=== PATIENT | female | born 1945 | race Caucasian/White ===

== ENCOUNTER 2018-04-30 11:19 | Day surgery (SDC) | payer MEDICARE, OTHER ==
[2018-04-30] MEDS ORDERED: LACTATED RINGERS 1,000 ML IV ONE (11:47)
[2018-04-30] MEDS ORDERED: MIDAZOLAM 2 MG/2 ML VIAL IVP ONE (12:49)
[2018-04-30] MEDS ORDERED: fentaNYL 100 MCG/2 ML VIAL IVP ONE (12:49)
[2018-04-30 14:39] VITALS: BP 133/62
== END 2018-04-30 11:20 | disposition home or self-care (01) ==
LOC: SDS 11:19
PROVIDERS: ATTEND Surgery
PROC: 0DJD8ZZ Inspection of Lower Intestinal Tract, Via Natural or Artificial Opening Endoscopic (ICD-10-PCS; principal; 2018-04-30 12:30)
DX: Z12.11 Encounter for screening for malignant neoplasm of colon (principal); K57.30 Diverticulosis of large intestine without perforation or abscess without bleeding; K64.8 Other hemorrhoids; Z88.5 Allergy status to narcotic agent; Z87.891 Personal history of nicotine dependence
CPT/HCPCS: G0121; J7120

== ENCOUNTER 2019-08-09 08:11 | Outpatient (CLI) | payer MEDICARE, OTHER ==
--- NOTE | 2019-08-13 11:06 | Mammography Report ---
Reason: ROUTINE MAMMO Procedure Date: 08/09/2019 Accession Number: [id number] / [id number] Procedure: BRYAN - Screening Mammo w/Tor CPT Code: Final Report FULL RESULT: EXAM: Screening Mammo w/Tor DATE: 08/09/2019 8:46 AM CLINICAL HISTORY: Screening encounter. TECHNIQUE: (B) - Bilateral CC and MLO views were obtained. Left laterally exaggerated CC view is obtained. COMPARISON: 06/10/2016 through 09/03/2009. PARENCHYMAL PATTERN: (A) - The breast(s) demonstrate(s) scattered fibroglandular densities. FINDINGS: There are typically benign vascular calcifications. There are no suspicious masses, calcifications, or areas of distortion. IMPRESSION: Benign findings. BI-RADS category 2. RECOMMENDATION: (ANNUAL) - Recommend routine annual screening mammography. BI-RADS CATEGORY: (2) - Benign Findings. STANDARD QUALIFYING STATEMENTS: 1. This examination was not reviewed with the aid of Computer-Aided Detection (CAD). 2. A negative or benign imaging report should not preclude biopsy if clinically suspicious findings are present. 3. Dense breasts may obscure an underlying neoplasm. 4. This examination was reviewed with the aid of 3D breast imaging (tomosynthesis).
== END 2019-08-09 08:12 | disposition home or self-care (01) ==
LOC: DI 08:11
PROVIDERS: ATTEND Internal Medicine
DX: Z12.31 Encounter for screening mammogram for malignant neoplasm of breast (principal)
CPT/HCPCS: 77063; 77067

== ENCOUNTER 2020-07-23 08:00 | Outpatient (CLI) | payer MEDICARE, OTHER ==
[2020-07-23 08:16] LABS: BASOPHILS % (AUTO) 0.2 %; EOSINOPHILS # (AUTO) 0.3 10^3/uL (0.0-0.7); EOSINOPHILS % (AUTO) 5.6 %; HGB - HEMOGLOBIN 14.7 g/dL (12.0-16.0); LYMPHOCYTES # (AUTO) 1.7 10^3/uL (1.5-3.5); LYMPHOCYTES % (AUTO) 32.9 %; MEAN CORPUSCULAR HEMOGLOBIN 30.2 pg (27.0-31.0); MEAN CORPUSCULAR HGB CONC 32.1 g/dL (32.0-36.0); MEAN PLATELET VOLUME 10.6 fL (7.9-10.8); MONOCYTES # (AUTO) 0.4 10^3/uL (0.0-1.0); NEUTROPHILS # (AUTO) 2.7 10^3/uL (1.5-6.6); NEUTROPHILS % (AUTO) 54.1 %; PLT - PLATELET COUNT 176 10^3/uL (130-450); RED BLOOD COUNT 4.87 10^6/uL (4.20-5.40); RED CELL DISTRIBUTION WIDTH 13.7 % (12.0-15.0)
[2020-07-23 08:38] LABS: ALBUMIN 4.4 g/dL (3.2-5.5); ALBUMIN/GLOBULIN RATIO 1.8 (1.0-2.2); ALKALINE PHOSPHATASE 45 IU/L (42-121); ALT ALANINE AMINOTRANSFERASE 12 IU/L (10-60); AST ASPARTATE AMINOTRANSFERASE 19 IU/L (10-42); BILIRUBIN,TOTAL 0.6 mg/dL (0.2-1.0); BUN - BLOOD UREA NITROGEN 17 mg/dL (6-20); CALCIUM 9.5 mg/dL (8.5-10.3); CARBON DIOXIDE - CO2 26 mmol/L (21-32); CHLORIDE 105 mmol/L (101-111); CHOL/HDL RATIO 1.8 (<4.4); CHOLESTEROL 175 mg/dL; CREATININE 0.8 mg/dL (0.4-1.0); GLUCOSE 102 mg/dL (70-100); HDL CHOLESTEROL 97 mg/dL; LDL CHOLESTEROL,CALCULATED 65 mg/dL; LDL/HDL RATIO 0.7 (<4.4); TOTAL PROTEIN 6.8 g/dL (6.7-8.2); VLDL CHOLESTEROL 13 mg/dL
[2020-07-23 12:49] LABS: HEMOGLOBIN A1c% 5.1 % (4.27-6.07)
== END 2020-07-23 23:59 | disposition home or self-care (01) ==
LOC: LAB 08:00
PROVIDERS: ATTEND Internal Medicine
DX: R73.01 Impaired fasting glucose (principal); Z13.6 Encounter for screening for cardiovascular disorders; Z79.899 Other long term (current) drug therapy; N95.1 Menopausal and female climacteric states; G47.00 Insomnia, unspecified; N93.1 Pre-pubertal vaginal bleeding
CPT/HCPCS: 36415; 80053; 80061; 83036; 83721; 84443; 85025

== ENCOUNTER 2020-11-04 12:09 | Outpatient (CLI) | payer MEDICARE, OTHER ==
[2020-11-04] MEDS ORDERED: IOPAMIDOL-300 100 ML VIAL ONE (12:38)
[2020-11-04] MEDS ORDERED: IOPAMIDOL-300 50 ML VIAL ONE (12:38)
--- NOTE | 2020-11-04 15:19 | CT Report ---
PROCEDURE: Abdomen/Pelvis W INDICATIONS: LLQ PAIN CONTRAST: IV CONTRAST: Isovue 300 ml: 100 PO CONTRAST: Isovue 300 ml50 TECHNIQUE: After the administration of intravenous contrast, 5 mm thick sections acquired from the diaphragms to the symphysis. 5 mm thick coronal and sagittal reformats were acquired. For radiation dose reducti on, the following was used: automated exposure control, adjustment of mA and/or kV according to shirley ent size. COMPARISON: None. FINDINGS: Lower thorax: There is 4 mm peripheral nodule left lower lobe. Remainder of the lung bases are clear . Heart size normal. No hiatal hernia. Liver: Normal in size and attenuation. No contour deformity present. Biliary system: No calcified cholelithiasis or pericholecystic inflammation. No evidence of bile du ct dilatation. Pancreas: Unremarkable without mass or inflammation evident. Spleen: Normal in size and density. Adrenals: Normal morphology and density. Reproductive system: Unremarkable as visualized. Urinary system: Normal renal size and attenuation. No renal calculi, hydronephrosis, or solid mass p resent. Urinary bladder unremarkable. Gastrointestinal system: The bowel appears unremarkable with no evidence of bowel obstruction or inf lammation. The stomach appears unremarkable. Moderate diffuse debris throughout the colon. Appendix: No findings to suggest acute appendicitis. Peritoneal spaces: No mesenteric or retroperitoneal adenopathy. No free air. No free fluid. Vasculature: The IVC, aorta and iliac vasculature are unremarkable. Musculoskeletal: Normal bone mineralization. No acute fractures. Abdominal wall intact without sandra dence of ventral or inguinal hernias. Degenerative disc disease and arthropathy lower lumbar spine re sulting in severe central stenosis and grade 1 anterior spinal listhesis at L4-5. Minimal retrolisthe sis also noted at L2-3. IMPRESSION:? 1. Moderate to fecal debris throughout the colon without evidence of diverticulitis or obstruction. N o free air. 2. Incidental 4 mm peripheral left lower lobe nodule. Consider one-year follow-up in a high risk shirley ent. 3. Lower lumbar spine degenerative disc disease and arthropathy results in severe central stenosis an d grade 1 anterior spondylolisthesis at L4-5 Reviewed by: Raymond Diaz MD on 11/04/2020 2:18 PM AKDT Approved by: Raymond Diaz MD on 11/04/2020 2:18 PM AKDT Station ID: [id number]
[2020-11-04] MEDS ORDERED: IOPAMIDOL-300 100 ML VIAL IVP ONE (18:55)
[2020-11-04] MEDS ORDERED: IOPAMIDOL-300 50 ML VIAL PO ONE (18:55)
== END 2020-11-04 12:10 | disposition home or self-care (01) ==
LOC: DI 12:09
PROVIDERS: ATTEND Internal Medicine
DX: R10.32 Left lower quadrant pain (principal); R91.1 Solitary pulmonary nodule; M51.36 Other intervertebral disc degeneration, lumbar region; M48.061 Spinal stenosis, lumbar region without neurogenic claudication; M43.16 Spondylolisthesis, lumbar region; Z79.899 Other long term (current) drug therapy
CPT/HCPCS: 36415; 74177; 82565; Q9967

== ENCOUNTER 2020-11-04 12:11 | Outpatient (CLI) | payer MEDICARE, OTHER ==
[2020-11-04 12:59] LABS: CREATININE 0.7 mg/dL (0.4-1.0)
== END 2020-11-04 12:12 | disposition home or self-care (01) ==
LOC: LAB 12:11
PROVIDERS: ATTEND Internal Medicine
DX: Z79.899 Other long term (current) drug therapy (principal)
CPT/HCPCS: 36415; 82565

== ENCOUNTER 2021-08-10 09:22 | Outpatient (CLI) | payer MEDICARE, OTHER ==
--- NOTE | 2021-08-11 08:02 | Mammography Report ---
BILATERAL DIGITAL SCREENING MAMMOGRAM 3D/2D: 08/10/2021 CLINICAL: Routine screening. Comparison is made to exams dated: 08/09/2019 mammogram, 06/10/2016 mammogram, 12/04/2015 mammogram, mammogram, and 08/30/2012 mammogram - [facility]. There are scattered fibro glandular elements in both breasts. No significant masses, calcifications, or other findings are seen in either breast. There has been no significant interval change. IMPRESSION: NEGATIVE There is no mammographic evidence of malignancy. A 1 year screening mammogram is recommended. This exam was interpreted at Station ID: [id number]. NOTE: For mammograms, a report in lay terms will be sent to the patient. Approximately 15% of breast malignancies will not be visualized mammographically. In the management of a palpable breast mass, a negative mammogram must not discourage biopsy of a clinically suspicious lesion. Electronically Signed By: Radha Norwood M.D. [email or web address]:08/10/2021 11:15:26 ACR BI-RADS Category 1: Negative 3341F PARENCHYMAL PATTERN: (A) - The breast(s) demonstrate(s) scattered fibroglandular densities. BI-RADS CATEGORY: (1) - 1 RECOMMENDATION: (ANNUAL) - Recommend routine annual screening mammography. [id number] 1 year screening LATERALITY: (B)
== END 2021-08-10 09:23 | disposition home or self-care (01) ==
LOC: DI.N 09:22
PROVIDERS: ATTEND Internal Medicine
DX: Z12.31 Encounter for screening mammogram for malignant neoplasm of breast (principal)

== ENCOUNTER 2022-03-01 08:29 | Outpatient (CLI) | payer MEDICARE, OTHER ==
--- NOTE | 2022-03-01 10:08 | Ultrasound Report ---
PROCEDURE: Duplex Ext Veins Left INDICATIONS: PAIN, EDEMA TECHNIQUE: Real-time imaging, as well as color and pulse Doppler interrogation, were performed of the lower extr emity deep veins from the inguinal ligament to the popliteal fossa. COMPARISON: None. FINDINGS: The deep veins are normally compressible, and free of intraluminal thrombus. Color and pu lse Doppler demonstrate normal phasic intraluminal flow. There is normal augmentation response to di stal compression maneuver. No sonographic abnormality identified at the patient indicated area of co ncern at the lateral aspect of the knee. IMPRESSION: No evidence of left lower extremity deep venous thrombosis. Reviewed by: Harvey Rodriguez MD on 03/01/2022 10:06 AM PDT Approved by: Harvey Rodriguez MD on 03/01/2022 10:06 AM PDT Station ID: [id number]
== END 2022-03-01 08:30 | disposition home or self-care (01) ==
LOC: DI 08:29
PROVIDERS: ATTEND Internal Medicine
DX: M79.605 Pain in left leg (principal); R60.9 Edema, unspecified

== ENCOUNTER 2022-08-10 08:12 | Outpatient (CLI) | payer MEDICARE, OTHER ==
--- NOTE | 2022-08-10 11:37 | Mammography Report ---
BILATERAL DIGITAL SCREENING MAMMOGRAM 3D/2D: 08/10/2022 CLINICAL: Routine screening. Comparison is made to exams dated: 08/10/2021 mammogram, 08/09/2019 mammogram, 06/10/2016 mammogram, mammogram, 09/06/2013 mammogram, and 08/30/2012 mammogram - [facility]. There are scattered areas of fibroglandular density in both breasts (category b / 25%-50% glandular t issue). No significant masses, calcifications, or other findings are seen in either breast. There has been no significant interval change. IMPRESSION: NEGATIVE There is no mammographic evidence of malignancy. A 1 year screening mammogram is recommended. Based on the Tyrer Cuzick model (a risk assessment model) the patients lifetime risk is 2.4% and her 10 year risk is 0.0%. According to the ACR, ACS, and NCCN guidelines, an annual breast MRI exam anna g with mammogram is recommended if the patients lifetime risk is 20% or greater. This exam was interpreted at Station ID: [id number]. NOTE: For mammograms, a report in lay terms will be sent to the patient. Approximately 15% of breast malignancies will not be visualized mammographically. In the management of a palpable breast mass, a negative mammogram must not discourage biopsy of a clinically suspicious lesion. Electronically Signed By: Rashel Ruiz M.D. [email or web address]:08/10/2022 08:51:16 ACR BI-RADS Category 1: Negative 3341F PARENCHYMAL PATTERN: (A) - The breast(s) demonstrate(s) scattered fibroglandular densities. BI-RADS CATEGORY: (1) - 1 RECOMMENDATION: (ANNUAL) - Recommend routine annual screening mammography. [id number] 1 year screening LATERALITY: (B)
== END 2022-08-10 08:13 | disposition home or self-care (01) ==
LOC: DI.N 08:12
PROVIDERS: ATTEND Internal Medicine
DX: Z12.31 Encounter for screening mammogram for malignant neoplasm of breast (principal)

== ENCOUNTER 2022-08-25 07:25 | Outpatient (CLI) | payer MEDICARE, OTHER ==
[2022-08-25 07:59] LABS: BASOPHILS % (AUTO) 0.5 %; EOSINOPHILS # (AUTO) 0.3 10^3/uL (0.0-0.7); EOSINOPHILS % (AUTO) 5.8 %; HCT - HEMATOCRIT 45.2 % (37.0-47.0); HGB - HEMOGLOBIN 14.9 g/dL (12.0-16.0); LYMPHOCYTES # (AUTO) 1.9 10^3/uL (1.5-3.5); LYMPHOCYTES % (AUTO) 34.2 %; MEAN CORPUSCULAR VOLUME 90.9 fL (81.0-99.0); MEAN PLATELET VOLUME 10.2 fL (7.9-10.8); MONOCYTES # (AUTO) 0.4 10^3/uL (0.0-1.0); MONOCYTES % (AUTO) 7.7 %; NEUTROPHILS # (AUTO) 2.9 10^3/uL (1.5-6.6); NEUTROPHILS % (AUTO) 51.4 %; PLT - PLATELET COUNT 193 10^3/uL (130-450); RED BLOOD COUNT 4.97 10^6/uL (4.20-5.40); RED CELL DISTRIBUTION WIDTH 13.9 % (12.0-15.0); WHITE BLOOD COUNT 5.6 x10^3/uL (4.8-10.8)
[2022-08-25 08:18] LABS: ALBUMIN 4.3 g/dL (3.2-5.5); ALBUMIN/GLOBULIN RATIO 1.5 (1.0-2.2); ALKALINE PHOSPHATASE 41 IU/L (42-121); ALT ALANINE AMINOTRANSFERASE 11 IU/L (10-60); AST ASPARTATE AMINOTRANSFERASE 19 IU/L (10-42); BILIRUBIN,TOTAL 0.8 mg/dL (0.2-1.0); BUN - BLOOD UREA NITROGEN 17 mg/dL (6-20); CALCIUM 9.5 mg/dL (8.5-10.3); CARBON DIOXIDE - CO2 28 mmol/L (21-32); CHLORIDE 103 mmol/L (101-111); CHOL/HDL RATIO 2.1 (<4.4); CHOLESTEROL 183 mg/dL; CREATININE 0.6 mg/dL (0.4-1.0); GFR - MDRD 97 (>89); GLUCOSE 102 mg/dL (70-100); HDL CHOLESTEROL 88 mg/dL; LDL CHOLESTEROL,CALCULATED 84 mg/dL; POTASSIUM 4.2 mmol/L (3.5-5.0); SODIUM 138 mmol/L (135-145); TOTAL PROTEIN 7.2 g/dL (6.7-8.2); TRIGLYCERIDES 55 mg/dL; VLDL CHOLESTEROL 11 mg/dL
[2022-08-29 10:22] LABS: ESTIMATED AVERAGE GLUCOSE 105 mg/dL (70-100); HEMOGLOBIN A1c% 5.3 % (4.27-6.07)
== END 2022-08-25 07:26 | disposition home or self-care (01) ==
LOC: LAB 07:25
PROVIDERS: ATTEND Internal Medicine
DX: Z00.00 Encounter for general adult medical examination without abnormal findings (principal); H26.9 Unspecified cataract; N95.1 Menopausal and female climacteric states; R73.01 Impaired fasting glucose; G47.00 Insomnia, unspecified; M19.90 Unspecified osteoarthritis, unspecified site; R21 Rash and other nonspecific skin eruption; Z13.6 Encounter for screening for cardiovascular disorders; R91.1 Solitary pulmonary nodule; M48.061 Spinal stenosis, lumbar region without neurogenic claudication; Z79.899 Other long term (current) drug therapy
CPT/HCPCS: 36415; 80053; 80061; 83036; 83721; 84443; 85025

== ENCOUNTER 2023-08-17 08:22 | Outpatient (CLI) | payer MEDICARE, OTHER ==
--- NOTE | 2023-08-18 08:38 | Mammography Report ---
BILATERAL DIGITAL SCREENING MAMMOGRAM 3D/2D: 08/17/2023 CLINICAL: Routine screening. Comparison is made to exams dated: 08/10/2022 mammogram, 08/10/2021 mammogram, 08/09/2019 mammogram, mammogram, 12/04/2015 mammogram, and 09/06/2013 mammogram - Merged with [facility]. There are scattered areas of fibroglandular density in both breasts (category b / 25%-50% glandular t issue). No significant masses, calcifications, or other findings are seen in either breast. There has been no significant interval change. IMPRESSION: NEGATIVE There is no mammographic evidence of malignancy. A 1 year screening mammogram is recommended. Based on the Tyrer Cuzick model (a risk assessment model) the patient's lifetime risk is 2.2% and her 10 year risk is 0.0%. According to the ACR, ACS, and NCCN guidelines, an annual breast MRI exam anna g with mammogram is recommended if the patient's lifetime risk is 20% or greater. This exam was interpreted at Station ID: [id number]. NOTE: For mammograms, a report in lay terms will be sent to the patient. Approximately 15% of breast malignancies will not be visualized mammographically. In the management of a palpable breast mass, a negative mammogram must not discourage biopsy of a clinically suspicious lesion. Electronically Signed By: Arsen [email or web address]:08/17/2023 09:32:50 letter sent: No_Letter ACR BI-RADS Category 1: Negative 3341F PARENCHYMAL PATTERN: (A) - The breast(s) demonstrate(s) scattered fibroglandular densities. BI-RADS CATEGORY: (1) - 1 Mammogram [id number] 1 year screening LATERALITY: (B)
== END 2023-08-17 08:23 | disposition home or self-care (01) ==
LOC: DI.N 08:22
PROVIDERS: ATTEND Internal Medicine
DX: Z12.31 Encounter for screening mammogram for malignant neoplasm of breast (principal); R92.323 Mammographic fibroglandular density, bilateral breasts

== ENCOUNTER 2023-09-05 07:27 | Outpatient (CLI) | payer MEDICARE, OTHER ==
[2023-09-05 07:45] LABS: BASOPHILS % (AUTO) 0.6 %; EOSINOPHILS # (AUTO) 0.3 10^3/uL (0.0-0.7); EOSINOPHILS % (AUTO) 4.2 %; HCT - HEMATOCRIT 45.8 % (37.0-47.0); HGB - HEMOGLOBIN 14.7 g/dL (12.0-16.0); LYMPHOCYTES # (AUTO) 2.1 10^3/uL (1.5-3.5); LYMPHOCYTES % (AUTO) 32.2 %; MEAN CORPUSCULAR HGB CONC 32.1 g/dL (32.0-36.0); MEAN CORPUSCULAR VOLUME 93.5 fL (81.0-99.0); MEAN PLATELET VOLUME 10.6 fL (7.9-10.8); MONOCYTES # (AUTO) 0.5 10^3/uL (0.0-1.0); MONOCYTES % (AUTO) 7.6 %; NEUTROPHILS # (AUTO) 3.6 10^3/uL (1.5-6.6); NEUTROPHILS % (AUTO) 55.2 %; PLT - PLATELET COUNT 201 10^3/uL (130-450); RED CELL DISTRIBUTION WIDTH 13.6 % (12.0-15.0); WHITE BLOOD COUNT 6.6 x10^3/uL (4.8-10.8)
[2023-09-05 08:05] LABS: ALBUMIN 4.2 g/dL (3.2-5.5); ALBUMIN/GLOBULIN RATIO 1.8 (1.0-2.2); ALKALINE PHOSPHATASE 53 IU/L (42-121); ALT ALANINE AMINOTRANSFERASE 6 IU/L (10-60); AST ASPARTATE AMINOTRANSFERASE 14 IU/L (10-42); BILIRUBIN,TOTAL 0.6 mg/dL (0.2-1.0); BUN - BLOOD UREA NITROGEN 15 mg/dL (6-20); CALCIUM 9.8 mg/dL (8.5-10.3); CARBON DIOXIDE - CO2 28 mmol/L (21-32); CHLORIDE 106 mmol/L (101-111); CHOLESTEROL 149 mg/dL; CREATININE 0.7 mg/dL (0.6-1.3); GFR - MDRD 81 (>89); GLUCOSE 105 mg/dL (74-104); HDL CHOLESTEROL 76 mg/dL; LDL CHOLESTEROL,CALCULATED 54 mg/dL; LDL/HDL RATIO 0.7 (<4.4); POTASSIUM 4.2 mmol/L (3.5-4.5); SODIUM 138 mmol/L (135-145); TOTAL PROTEIN 6.5 g/dL (6.4-8.9); TRIGLYCERIDES 97 mg/dL (48-352); VLDL CHOLESTEROL 19 mg/dL
[2023-09-05 08:19] LABS: THYROID STIMULATING HORMONE 2.44 uIU/mL (0.34-5.60)
[2023-09-05 09:56] LABS: ESTIMATED AVERAGE GLUCOSE 103 mg/dL (70-100); HEMOGLOBIN A1c% 5.2 % (4.27-6.07)
== END 2023-09-05 07:28 | disposition home or self-care (01) ==
LOC: LAB 07:27
PROVIDERS: ATTEND Internal Medicine
DX: Z00.00 Encounter for general adult medical examination without abnormal findings (principal); R03.0 Elevated blood-pressure reading, without diagnosis of hypertension; R73.01 Impaired fasting glucose
CPT/HCPCS: 36415; 80053; 80061; 83036; 83721; 84443; 85025